=== PATIENT | male | born 1970 | race African-American/Black ===

== ENCOUNTER → 2016-11-04 | Outpatient (CLI) | payer BC ==
[~2016-11-04] MED LIST: CIPRO500 M1; PRILOSEC20 MG PO
== END ==
LOC: RAD 09:54
DX: R05 Cough (principal); R50.9 Fever, unspecified

== ENCOUNTER → 2020-08-28 | Outpatient (CLI) | payer OTHER | LOC: LAB 09:19 | PROVIDERS: ATTEND Nurse Practitioner | DX: U07.1 COVID-19 (principal) ==

== ENCOUNTER → 2021-11-05 | Outpatient (CLI) | payer OTHER | LOC: SJCVCIMAG 10:41 | PROVIDERS: ATTEND Internal Medicine | DX: I35.8 Other nonrheumatic aortic valve disorders (principal); I10 Essential (primary) hypertension ==

== ENCOUNTER → 2021-11-10 | Outpatient (CLI) | payer OTHER | LOC: CAT 11:12 | PROVIDERS: ATTEND Internal Medicine Cardiovascular Disease | DX: Z13.6 Encounter for screening for cardiovascular disorders (principal); E78.00 Pure hypercholesterolemia, unspecified; I25.10 Atherosclerotic heart disease of native coronary artery without angina pectoris ==